=== PATIENT | male | born 1965 | race Caucasian/White ===

== ENCOUNTER 2019-08-04 12:10 | Emergency (ER) | payer SELFPAY ==
[~2019-08-04] VITALS: Ht 172.7 cm; Wt 85.7 kg
[2019-08-04 12:12] VITALS: Ht 172.7 cm; Wt 85.7 kg
[2019-08-04 14:43] VITALS: BP 158/99
== END 2019-08-04 14:43 | disposition home or self-care (01) ==
LOC: ED 12:10
DX: I10 Essential (primary) hypertension (principal); Z76.0 Encounter for issue of repeat prescription

== ENCOUNTER 2019-09-07 10:09 | Emergency (ER) | payer MEDICAID ==
[~2019-09-07] VITALS: Ht 172.7 cm; Wt 84.8 kg
[2019-09-07 10:23] VITALS: Ht 172.7 cm; Wt 84.8 kg
[2019-09-07 10:45] LABS: BASOPHIL % 0.3 % (0-2); RED CELL DISTRIBUTION WIDTH 14.4 % (11.5-14.5)
[2019-09-07 10:59] LABS: PLATELET COUNT 104 x10^3mcL (130-400)
[2019-09-07 11:06] LABS: CALCIUM 9.2 mg/dL (8.5-10.1); CARBON DIOXIDE 29.2 mmol/L (21-32); CHLORIDE SERUM 92 mmol/L (98-107); CREATININE SERUM 0.8 mg/dL (0.7-1.3); GFR1 > 60 mL/min; GLUCOSE SERUM 290 mg/dL (74-106); POTASSIUM SERUM 3.5 mmol/L (3.5-5.1); SODIUM SERUM 132 mmol/L (136-145)
[2019-09-07 11:11] LABS: ALKALINE PHOSPHATASE 269 U/L (46-116); ALT/SGPT 59 U/L (16-63); AST/SGOT 90 U/L (15-37); BILIRUBIN TOTAL 2.2 mg/dL (0.20-1.00); TOTAL PROTEIN, SERUM 9.5 g/dL (6.4-8.2)
[2019-09-07 13:53] VITALS: BP 113/70
== END 2019-09-07 13:53 | disposition home or self-care (01) ==
LOC: ED 10:09
PROVIDERS: Emergency Medicine
DX: R51 Headache (principal); I10 Essential (primary) hypertension; E11.9 Type 2 diabetes mellitus without complications; R11.2 Nausea with vomiting, unspecified; R19.7 Diarrhea, unspecified; R10.84 Generalized abdominal pain
CPT/HCPCS: 36415

== ENCOUNTER 2019-12-03 08:50 | Emergency (ER) | payer MEDICAID ==
[~2019-12-03] VITALS: Ht 175.3 cm; Wt 87.5 kg
[2019-12-03 08:58] VITALS: Ht 175.3 cm; Wt 87.5 kg
[2019-12-03 10:19] LABS: microscopic required? NO
[2019-12-03 10:58] LABS: RED CELL DISTRIBUTION WIDTH 15.7 % (11.5-14.5)
[2019-12-03 10:59] LABS: PLATELET COUNT 113 x10^3mcL (130-400)
[2019-12-03 11:02] LABS: ALKALINE PHOSPHATASE 143 U/L (46-116); ALT/SGPT 45 U/L (16-63); AST/SGOT 79 U/L (15-37); BILIRUBIN TOTAL 1.3 mg/dL (0.20-1.00); CALCIUM 8.3 mg/dL (8.5-10.1); CARBON DIOXIDE 24.7 mmol/L (21-32); CHLORIDE SERUM 103 mmol/L (98-107); CREATININE SERUM 0.7 mg/dL (0.7-1.3); GFR1 > 60 mL/min; GLUCOSE SERUM 138 mg/dL (74-106); LIPASE 96 IU/L (73-393); POTASSIUM SERUM 3.3 mmol/L (3.5-5.1); SODIUM SERUM 142 mmol/L (136-145)
[2019-12-03 11:04] LABS: ALBUMIN 3.1 g/dL (3.4-5.0)
[2019-12-03 11:08] VITALS: BP 149/73
[2019-12-03 11:08] LABS: UA SPECIFIC GRAVITY 1.015 (1.005-1.035); urine erythrocyte NEGATIVE (NEGATIVE)
[2019-12-03 11:20] LABS: AMPHETAMINE QUAL UR NONE DETECTED (See below)
== END 2019-12-03 11:57 | disposition home or self-care (01) ==
LOC: ED 08:50
PROVIDERS: Emergency Medicine
DX: R07.89 Other chest pain (principal); R51 Headache; I10 Essential (primary) hypertension; E11.9 Type 2 diabetes mellitus without complications
CPT/HCPCS: 36415; Q0162